=== PATIENT | female | born 1980 | race Caucasian/White ===

== ENCOUNTER → 2016-11-20 10:32 | Emergency (ER) | payer BC ==
[~2016-11-20 10:32] MED LIST: Iohexol 300* (CONTRAST) 10 ML SDV IV ONE; NS 0.9% 1000 ML* 2,000 ML IV ONE
[2016-11-20 12:39] LABS: Hematocrit 40 % (35-47); Hemoglobin 13.4 g/dl (12.0-16.0); Mean Corpuscular HGB Conc 33 g/dl (31-36); Mean Corpuscular Hemoglobin 28 pg (27-31); Mean Corpuscular Volume 83 fL (80-97); Mean Platelet Volume 8 um3 (7.4-10.4); Red Blood Count 4.86 10^6/ul (4.0-5.4); Red Cell Distribution Width 14 % (10.5-15); White Blood Count 7.7 10^3/ul (3.5-10.8)
[2016-11-20 13:00] LABS: ALT 56 U/L (7-52); AST 29 U/L (13-39); Albumin 4.3 g/dL (3.2-5.2); Alkaline Phosphatase 79 U/L (34-104); Amylase 28 U/L (29-103); Anion Gap 6 mmol/L (2-11); BUN/Creatinine Ratio 17.6 (8-20); Blood Urea Nitrogen 13 mg/dL (6-24); C Reactive Protein 6.61 mg/L (< 5.00); CO2 Carbon Dioxide 27 mmol/L (22-32); Calcium 9.6 mg/dL (8.6-10.3); Chloride 104 mmol/L (101-111); EGFR African American 115.5 (>60); EGFR Non-African American 89.8 (>60); Glucose 102 mg/dL (70-100); Lipase 39 U/L (11.0-82.0); Potassium 3.8 mmol/L (3.5-5.0); Sodium 137 mmol/L (133-145); Total Protein 7.3 g/dL (6.4-8.9)
--- NOTE | 2016-11-20 13:00 | RAD ---
HISTORY: Right ovarian pain, vaginal bleeding COMPARISONS: March 27, 2016 TECHNIQUE: Multiple transverse and longitudinal ultrasound images were obtained of the pelvis using grayscale, color Doppler, and spectral Doppler imaging using the endovaginal transducer. FINDINGS: UTERUS: The uterus measures 3.8 x 4.3 x 5.6 cm. The uterus is normal in shape, size, contour, and echotexture. ENDOMETRIUM: The endometrial stripe is smooth. The endometrium measures 0.3 cm in thickness. CUL-DE-SAC: There is a small amount of simple fluid within the cul-de-sac. This may be physiologic in a reproductive age female. RIGHT OVARY: The right ovary measures 2.9 x 1.5 x 2.5 cm. Normal arterial and venous waveforms are identifiable within the ovary on spectral Doppler imaging. Multiple follicles are noted. LEFT OVARY: The left ovary measures 2.9 x 1.9 x 2.1 cm. Normal arterial and venous waveforms are identifiable within the ovary on spectral Doppler imaging. Multiple follicles are noted, including a 1.9 cm follicular cyst. BLADDER: The bladder is not well visualized. IMPRESSION: 1. NO SONOGRAPHIC FEATURES OF TORSION. PLEASE NOTE THAT PARTIAL OR INTERMITTENT TORSION MAY BE SONOGRAPHICALLY NORMAL. 2. SMALL AMOUNT OF FLUID WITHIN THE CUL-DE-SAC. THIS MAY BE PHYSIOLOGIC WITHIN A REPRODUCTIVE AGE FEMALE.
[2016-11-20 13:43] LABS: Urine Bacteria Absent (Absent); Urine Bilirubin Negative (Negative); Urine Glucose Negative (Negative); Urine Nitrite Negative (Negative)
--- NOTE | 2016-11-20 14:24 | RAD ---
INDICATION: Right upper and left lower quadrant pain. COMPARISON: Comparison is made with a prior CT of the abdomen and pelvis from December 05, 2014. TECHNIQUE: A CT scan of the abdomen and pelvis was performed with intravenous and oral contrast following intravenous injection of 132 ml of Omnipaque 300 nonionic contrast. Contiguous axial sections were obtained from the lung bases through the symphysis pubis. Images were reconstructed in the coronal and sagittal planes. FINDINGS: The lung bases are clear. No pleural effusion is present. The liver is mildly enlarged and decreased in attenuation consistent with fatty infiltration. No significant focal abnormality is seen. No intra or extrahepatic ductal distention is present. The patient is status post cholecystectomy. The spleen and pancreas appear to be within normal limits. The kidneys and adrenal glands are normal in size. No hydronephrosis is seen. No significant focal renal abnormality is seen. The aorta is normal in caliber and demonstrates homogeneous contrast opacification. No significant enlarged retroperitoneal lymph nodes are seen. The stomach, small and large bowel appear nondistended. The appendix is within normal limits. There is no evidence for diverticulitis or colitis. There is a small periumbilical hernia containing fat. The uterus is anteverted and normal in size. There is a focal hypodense area in the posterior body of the uterus measuring 2.1 x 1.2 cm in size most consistent with a leiomyoma. No free intraperitoneal air or fluid is seen. No significant focal osseous abnormality is seen. IMPRESSION: 1. NO EVIDENCE FOR ACUTE FINDING OR CAUSE FOR THE PATIENT'S ABDOMINAL PAIN IS SEEN. 2. MILD HEPATOMEGALY AND HEPATIC STEATOSIS. 3. STATUS POST CHOLECYSTECTOMY.
[2016-11-20 15:35] VITALS: BP 132/68
--- NOTE | 2016-11-20 15:52 | ED ---
Felicitas Mccullough Auryana, scribed for Vaibhav Flores MD on 11/20/16 at 1358 . Abdominal Pain/Female - HPI Summary HPI Summary: 36 year old female presents with abdominal pain for the last year worse today. She states that the episodes are intermittent and that eating aggravates the pain. She reports that also has increased sweating, chills, pain under her right breast, and prolonged menstruation for the last year - reports about 4 pads a day, currently week 3 of menstrual period. She denies chest pain, vaginal discharge, trouble urinating, ear pain, and sore throat. She is unsure what her urine looks like. She is not on any blood thinners. PMHx is significant for cholestectomy - removal in 2015- chronic diarrhea (nml color, no blood, semi formed) since then with internal bleeding and excess scar tissue s/p surgery (also reports changes in eating habits - lost 5-6 pounds) and IBS. No PMHx of HTN, HLD, or DM. FHx is significant for IBS. She denies any excessive alcohol use. She is a former smoker and occasional alcohol use. PCP is Dr. Oviedo. - History of Current Complaint Chief Complaint: EDOrvillein Stated Complaint: ABD PAIN/BUMP UNDER RT BREAST Time Seen by Provider: 11/20/16 11:16 Hx Obtained From: Patient Hx Last Menstrual Period: current Onset/Duration: Lasting Weeks - for last year, Still Present, Worse Since Timing: Constant Severity Initially: Mild Severity Currently: Moderate Pain Intensity: 7 Pain Scale Used: 0-10 Numeric Location: Diffuse Aggravating Factor(s): Food - in general Associated Signs and Symptoms: Positive: Diaphoresis, Vaginal Bleeding - prolonged menstration, Other: - pain under the right breast, chills Simlar Episode/Dx as:: see HPI Allergies/Adverse Reactions: Allergies Allergy/AdvReac Type Severity Reaction Status Date / Time Penicillin V Allergy Unknown Verified 12/05/14 15:06 [From Penicillin VK Reaction Potassium] Details Morphine AdvReac Nausea And Verified 12/05/14 15:06 Vomiting APRICOTS Allergy Rash Uncoded 12/05/14 15:06 cillins, Allergy Rash Uncoded 12/05/14 15:06 PMH/Surg Hx/FS Hx/Imm Hx Endocrine/Hematology History: Denies: Hx Diabetes Cardiovascular History: Denies: Hx Congestive Heart Failure, Hx Hypertension, Hx Pacemaker/ICD GI History: Reports: Hx Gastroesophageal Reflux Disease - CONTROL WITH MEDS History: Denies: Hx Dialysis, Hx Renal Disease Sensory History: Reports: Hx Contacts or Glasses - CONTACTS INSTRUCTED TO WEAR GLASSES DAY OF SURGERY Denies: Hx Hearing Aid Opthamlomology History: Reports: Hx Contacts or Glasses - CONTACTS INSTRUCTED TO WEAR GLASSES DAY OF SURGERY Psychiatric History: Denies: Hx Panic Disorder - Surgical History Surgery Procedure, Year, and Place: 2002 RIGHT KNEE ARTHROSCOPIC ANTERIOR CRUCIATE LIGAMENT RECONSTRUCTION, [id number] RIGHT KNEE ARTHROSCOPIC SURGERY, [id number] LEFT KNEE ARTHROSCOPIC ANTERIOR CRUCIATE LIGAMENT RECONSTRUCTION ANDWISDOM TEETH EXTRACTION, OFFICE. November 27 gallbladder removed Hx Anesthesia Reactions: No Infectious Disease History: No Infectious Disease History: Denies: Traveled Outside the [place] in Last 30 Days - Family History Known Family History: Positive: Other - IBS - Social History Occupation: Employed Full-time - [employer] Lives: Alone Alcohol Use: Occasionally Substance Use Type: Reports: None, Prescribed Substance Use Comment - Amount & Last Used: oxycodone post op 11/27/14 Hx Tobacco Use: No Smoking Status (MU): Former Smoker Amount Used/How Often: 2-3 CIGARETTES PER DAY Have You Smoked in the Last Year: No Review of Systems Positive: Chills, Skin Diaphoresis - increased sweating . Negative: Fever Eyes: Negative Cardiovascular: Negative Respiratory: Negative Positive: Abdominal Pain Positive: other - vaginal bleeding - heavy - for 3 weeks now Positive: Other - pain under the right breast Skin: Negative Neurological: Negative Psychological: Normal All Other Systems Reviewed And Are Negative: Yes Physical Exam - Summary Physical Exam Summary: The patient is well-nourished in no acute distress and in no acute pain. The skin is warm and dry and skin color reflects adequate perfusion. HEENT: The head is normocephalic and atraumatic. The pupils are equal and reactive. The conjunctivae are clear and without drainage. Nares are patent and without drainage. Mouth reveals moist mucous membranes and the throat is without erythema and exudate. The external ears are intact. Neck is supple with full range of motion and non-tender. There are no carotid bruits. There is no neck vein distension. Respiratory: Chest is non-tender. Lungs are clear to auscultation and breath sounds are symmetrical and equal. Cardiovascular: Hear is regular rate and rhythm. There is no murmur or rub auscultated. There is no peripheral edema and pulses are symmetrical and equal. Abdomen: The abdomen is soft. Tenderness in the RUQ, left middle quadrant and over the R ovary. There are normal bowel sounds heard in all four quadrants and there is no organomegaly palpated. Musculoskeletal: There is no back pain noted. Extremities are non-tender with full range of motion. There is good capillary refill. There is no peripheral edema or calf tenderness elicited. Neurological: Patient is alert and oriented to person, place and time. The patient has symmetrical motor strength in all four extremities. Cranial nerves are grossly intact. Deep tendon reflexes are symmetrical and equal in all four extremities. Psychiatric: The patient has an appropriate affect and does not exhibit any anxiety or depression. Triage Information Reviewed: Yes Vital Signs On Initial Exam: Initial Vitals Temp Pulse Resp BP Pulse Ox 973.8 F 79 20 142/83 95 11/20/16 10:34 11/20/16 10:34 11/20/16 10:34 11/20/16 10:34 11/20/16 10:34 Vital Signs Reviewed: Yes - [place] Coma Scale Coma Scale Total: 15 Diagnostics - Vital Signs Vital Signs Temp Pulse Resp BP Pulse Ox 11/20/16 10:38 97.9 F 84 16 142/83 99 11/20/16 10:34 973.8 F 79 20 142/83 95 - Laboratory Lab Results: Lab Results 11/20/16 11/20/16 11/20/16 Range/Units 12:15 12:15 12:15 WBC 7.7 (3.5-10.8) 10^3/ul RBC 4.86 (4.0-5.4) 10^6/ul Hgb 13.4 (12.0-16.0) g/dl Hct 40 (35-47) % MCV 83 (80-97) fL MCH 28 (27-31) pg MCHC 33 (31-36) g/dl RDW 14 (10.5-15) % Plt Count 299 (150-450) 10^3/ul MPV 8 (7.4-10.4) um3 Neut % (Auto) 46.0 (38-83) % Lymph % (Auto) 45.5 (25-47) % [place] % (Auto) 7.0 (1-9) % Eos % (Auto) 1.0 (0-6) % Baso % (Auto) 0.5 (0-2) % Absolute Neuts (auto) 3.5 (1.5-7.7) 10^3/ul Absolute Lymphs (auto) 3.5 (1.0-4.8) 10^3/ul Absolute Monos (auto) 0.5 (0-0.8) 10^3/ul Absolute Eos (auto) 0.1 (0-0.6) 10^3/ul Absolute Basos (auto) 0 (0-0.2) 10^3/ul Absolute Nucleated RBC 0.02 10^3/ul Nucleated RBC % 0.2 Sodium 137 (133-145) mmol/L Potassium 3.8 (3.5-5.0) mmol/L Chloride 104 (101-111) mmol/L Carbon Dioxide 27 (22-32) mmol/L Anion Gap 6 (2-11) mmol/L BUN 13 (6-24) mg/dL Creatinine 0.74 (0.51-0.95) mg/dL Est GFR ( Amer) 115.5 (>60) Est GFR (Non-Af Amer) 89.8 (>60) BUN/Creatinine Ratio 17.6 (8-20) Glucose 102 H (70-100) mg/dL Lactic Acid 1.2 (0.5-2.0) mmol/L Calcium 9.6 (8.6-10.3) mg/dL Total Bilirubin 0.30 (0.2-1.0) mg/dL AST 29 (13-39) U/L ALT 56 H (7-52) U/L Alkaline Phosphatase 79 (34-104) U/L C-Reactive Protein 6.61 H (< 5.00) mg/L Total Protein 7.3 (6.4-8.9) g/dL Albumin 4.3 (3.2-5.2) g/dL Globulin 3.0 (2-4) g/dL Albumin/Globulin Ratio 1.4 (1-3) Amylase 28 L (29-103) U/L Lipase 39 (11.0-82.0) U/L Beta HCG, Quant < 0.60 mIU/mL Urine Color Urine Appearance Urine pH (5-9) Ur Specific [place] (1.010-1.030) Urine Protein (Negative) Urine Ketones (Negative) Urine Blood (Negative) Urine Nitrate (Negative) Urine Bilirubin (Negative) Urine Urobilinogen (Negative) Ur Leukocyte Esterase (Negative) Urine WBC (Auto) (Absent) Urine RBC (Auto) (Absent) Ur Squamous Epith Cells (Absent) Urine Bacteria (Absent) Urine Glucose (Negative) 11/20/16 Range/Units 13:00 WBC (3.5-10.8) 10^3/ul RBC (4.0-5.4) 10^6/ul Hgb (12.0-16.0) g/dl Hct (35-47) % MCV (80-97) fL MCH (27-31) pg MCHC (31-36) g/dl RDW (10.5-15) % Plt Count (150-450) 10^3/ul MPV (7.4-10.4) um3 Neut % (Auto) (38-83) % Lymph % (Auto) (25-47) % [place] % (Auto) (1-9) % Eos % (Auto) (0-6) % Baso % (Auto) (0-2) % Absolute Neuts (auto) (1.5-7.7) 10^3/ul Absolute Lymphs (auto) (1.0-4.8) 10^3/ul Absolute Monos (auto) (0-0.8) 10^3/ul Absolute Eos (auto) (0-0.6) 10^3/ul Absolute Basos (auto) (0-0.2) 10^3/ul Absolute Nucleated RBC 10^3/ul Nucleated RBC % Sodium (133-145) mmol/L Potassium (3.5-5.0) mmol/L Chloride (101-111) mmol/L Carbon Dioxide (22-32) mmol/L Anion Gap (2-11) mmol/L BUN (6-24) mg/dL Creatinine (0.51-0.95) mg/dL Est GFR ( Amer) (>60) Est GFR (Non-Af Amer) (>60) BUN/Creatinine Ratio (8-20) Glucose (70-100) mg/dL Lactic Acid (0.5-2.0) mmol/L Calcium (8.6-10.3) mg/dL Total Bilirubin (0.2-1.0) mg/dL AST (13-39) U/L ALT (7-52) U/L Alkaline Phosphatase (34-104) U/L C-Reactive Protein (< 5.00) mg/L Total Protein (6.4-8.9) g/dL Albumin (3.2-5.2) g/dL Globulin (2-4) g/dL Albumin/Globulin Ratio (1-3) Amylase (29-103) U/L Lipase (11.0-82.0) U/L Beta HCG, Quant mIU/mL Urine Color Yellow Urine Appearance Clear Urine pH 6.0 (5-9) Ur Specific [place] 1.024 (1.010-1.030) Urine Protein Negative (Negative) Urine Ketones Negative (Negative) Urine Blood 1+ H (Negative) Urine Nitrate Negative (Negative) Urine Bilirubin Negative (Negative) Urine Urobilinogen Negative (Negative) Ur Leukocyte Esterase Negative (Negative) Urine WBC (Auto) Absent (Absent) Urine RBC (Auto) 1+(3-5/hpf) H (Absent) Ur Squamous Epith Cells Present H (Absent) Urine Bacteria Absent (Absent) Urine Glucose Negative (Negative) Result Diagrams: 11/20/16 12:15 11/20/16 12:15 Lab Statement: Any lab studies that have been ordered have been reviewed, and results considered in the medical decision making process. - CT ABD/PEL CT Interpretation: Positive (See Comments) - IMPRESSION: 1. NO EVIDENCE FOR ACUTE FINDING OR CAUSE FOR THE PATIENT'S ABDOMINAL PAIN IS SEEN. 2. MILD HEPATOMEGALY AND HEPATIC STEATOSIS. 3. STATUS POST CHOLECYSTECTOMY. CT Interpretation Completed By: Radiologist - Additional Comments Diagnostic Additional Comments: Transvaginal US IMPRESSION: 1. NO SONOGRAPHIC FEATURES OF TORSION. PLEASE NOTE THAT PARTIAL OR INTERMITTENT TORSION MAY BE SONOGRAPHICALLY NORMAL. 2. SMALL AMOUNT OF FLUID WITHIN THE CUL-DE-SAC. THIS MAY BE PHYSIOLOGIC WITHIN A REPRODUCTIVE AGE FEMALE. Re-Evaluation - Re-Evaluation First Eval Re-Evaluation Time: 01:29 - discussed labs and imaging results- US Comment: PENDING ABD/PEL CT Second Eval Re-Evaluation Time: 15:01 - discuss ABD/PEL CT and plan of action Comment: gave up-to-date article on IBS - agrees with plan to discharge with follow up Abdominal Pain Fem Course/Dx - Course Course Of Treatment: 36 year old female presents with intermittent abdominal pain for the last year worse today. She also has increased sweating, chills, pain under the right breast, and prolonged menstration. PMHx is significant for cholestectomy (2014) with chronic diarrhea afterwards, and IBS. FHx is significant for IBS. Urine ordered - blood present. Labs drawn. Transvaginal US - 1. NO SONOGRAPHIC FEATURES OF TORSION. PLEASE NOTE THAT PARTIAL OR INTERMITTENT TORSION. MAY BE SONOGRAPHICALLY NORMAL. 2. SMALL AMOUNT OF FLUID WITHIN THE CUL-DE-SAC. THIS MAY BE PHYSIOLOGIC WITHIN A. REPRODUCTIVE AGE FEMALE. ABD/PEL CT - MILD HEPATOMEGALY AND HEPATIC STEATOSIS - otherwise NML. Patient kept up to date on progress throughout course. Does not wish to go home with any medication and agrees with discharge plan to follow up with Dr. Gomes (FOLDER INSPECTOR), Dr. Morales (GI) , and her PCP , Dr. Oviedo. Diagnosis: abdominal pain, vaginal bleeding and IBS - Diagnoses Differential Diagnosis: Positive: Diverticulitis, Ovarian Cyst, , Other - IBS, UC, Crohn's, DUB Provider Diagnoses: Vaginal bleeding, IBS (irritable bowel syndrome), Abdominal pain Discharge - Discharge Plan Condition: Stable Disposition: HOME Patient Education Materials: Abdominal Pain (ED), Dysfunctional Uterine Bleeding (ED), Irritable Bowel Syndrome (ED) Referrals: Mu Oviedo MD [Primary Care Provider] - 4 Days (On Wednesday) Nichole Gomes MD [Medical Doctor] - 4 Days Leonidas Morales MD [Medical Doctor] - 4 Days The documentation as recorded by the Felicitas lin Auryana accurately reflects the service I personally performed and the decisions made by , Vaibhav Flores MD.
== END | disposition home or self-care (01) ==
LOC: ED 10:32
DX: R10.9 Unspecified abdominal pain (principal); Z87.891 Personal history of nicotine dependence; K58.9 Irritable bowel syndrome, unspecified; N93.8 Other specified abnormal uterine and vaginal bleeding; Z32.02 Encounter for pregnancy test, result negative
CPT/HCPCS: 36415; 74177; 76830; 80053; 81003; 81015; 82150; 83605; 83690; 84702; 85025; 86140; 86803; 99282; Q9967

== ENCOUNTER 2018-01-18 10:16 | Emergency (ER) | payer BC ==
[2018-01-18] MEDS ORDERED: Aspirin 81 mg CHEW TAB* 81 MG TAB.CHEW PO ONE (10:59)
[2018-01-18] MEDS ORDERED: Famotidine TAB* 20 MG PO ONE (11:01)
[2018-01-18] MEDS ORDERED: Lidocaine 2% VISCOUS* 15 ML UDC PO ONE (11:01)
[2018-01-18] MEDS ORDERED: Al Hydrox/Mg Hydrox/Simet LIQ* 30 ML UDC PO ONE (11:01)
[2018-01-18 11:21] LABS: Hematocrit 38 % (35-47); Hemoglobin 12.7 g/dl (12.0-16.0); Mean Corpuscular HGB Conc 33 g/dl (31-36); Mean Corpuscular Hemoglobin 28 pg (27-31); Mean Corpuscular Volume 83 fL (80-97); Platelet Count 338 10^3/ul (150-450); Red Blood Count 4.57 10^6/ul (4.00-5.40); Red Cell Distribution Width 14 % (10.5-15)
--- NOTE | 2018-01-18 11:40 | RAD ---
INDICATION: Chest pain. COMPARISON: There are no prior studies available for comparison. TECHNIQUE: A portable view of the chest was obtained. FINDINGS: Cardiac and mediastinal contours appear to be within normal limits. The lungs are clear. No pleural effusion is seen. IMPRESSION: NO EVIDENCE FOR ACUTE DISEASE.
[2018-01-18 11:42] LABS: EGFR Non-African American 82.3 (>60)
[2018-01-18 12:00] LABS: ABS Basophils 0.1 10^3/ul (0-0.2); ABS Eosinophils 0.1 10^3/ul (0-0.6); ABS Lymphocytes 5.9 10^3/ul (1.0-4.8); ABS Monocytes 0.7 10^3/ul (0-0.8); ABS Neutrophils 8.1 10^3/ul (1.5-7.7); ABS Nucleated RBC 0 10^3/ul; Eosinophil % 0.9 % (0-6); Lymphocyte % 39.5 % (25-47); Nucleated Red Blood Cells % 0
[2018-01-18 12:53] VITALS: BP 133/78
--- NOTE | 2018-01-18 14:14 | ED ---
Caleb Mccullough Angela, scribed for Zach Story MD on 01/18/18 at 1043 . HPI Chest Pain - HPI Summary HPI Summary: This pt is a 38 y/o female presenting to [facility] c/o intermittent mid sternal chest pain since this morning. Pt reports her pain is intermittent and is described as sharp and spasm. She notes that when her pain comes it is sudden and makes her catch her breath but then resolves spontaneously. Pt states her mid sternal chest pain radiates to her right shoulder. These chest pain episodes last for about 2 minutes. Denies feeling heart burn, reflux, rapid heart rate, SOB. Her pain is not aggravated with ambulation or exertion. Denies recent long distance travel, pain or swelling in LE. Upon walking to the ED this morning she felt very exhausted. Pt drinks alcohol occasionally. She is a former smoker. Denies any drug use. FHx of brother with SVT. LMP: 2 weeks ago. - History of Current Complaint Chief Complaint: EDChestPainROMI Hx Obtained From: Patient Hx Last Menstrual Period: current Onset/Duration: Started Hours Ago, Still Present Timing: Intermittent, Lasting Hours Current Severity: Moderate Pain Intensity: 4 Pain Scale Used: 0-10 Numeric Chest Pain Location: Mid Sternal Chest Pain Radiates: Yes Chest Pain Radiates To:: Shoulder - right Character: Sharp/Stabbing - sharp Aggravating Factor(s): Nothing Alleviating Factor(s): Nothing Associated Signs and Symptoms: Positive: Chest Pain. Negative: Shortness of Breath, Swelling, Fever, Chills, Nausea, Calf Pain/Swelling, Vomiting, Edema - Allergy/Home Medications Allergies/Adverse Reactions: Allergies Allergy/AdvReac Type Severity Reaction Status Date / Time morphine Allergy Hives Verified 01/18/18 10:24 Penicillins Allergy Rash Verified 01/18/18 10:24 APRICOTS Allergy Rash Uncoded 01/18/18 10:24 Home Medications: Home Medications Ascorbic Acid TAB* [Vitamin C TAB*] 500 mg PO DAILY 01/18/18 [History Confirmed 01/18/18] Calcium Carbonate/Vitamin D3 [Calcium 500 + Vit D Caplet] 1 each PO DAILY [History Confirmed 01/18/18] Esomeprazole(NF) [NEXium(NF)] 20 mg PO DAILY 01/18/18 [History Confirmed ] Ethynodiol D-Ethinyl Estradiol [Zovia 135E 1-35 mg-Mcg] 1 tab PO DAILY [History Confirmed 01/18/18] Vitamin B Complex CAP* [B Complex CAP*] 1 cap PO DAILY 01/18/18 [History Confirmed 01/18/18] clonazePAM TAB(*) [KlonoPIN TAB(*)] 0.5 mg PO TID PRN 01/18/18 [History Confirmed 01/18/18] predniSONE TAB* [Deltasone TAB*] 25 mg PO DAILY 01/18/18 [History Confirmed 10/03] PMH/Surg Hx/FS Hx/Imm Hx Endocrine/Hematology History: Denies: Hx Diabetes Cardiovascular History: Denies: Hx Congestive Heart Failure, Hx Hypertension, Hx Pacemaker/ICD GI History: Reports: Hx Gastroesophageal Reflux Disease - CONTROL WITH MEDS History: Denies: Hx Dialysis, Hx Renal Disease Sensory History: Reports: Hx Contacts or Glasses - CONTACTS INSTRUCTED TO WEAR GLASSES DAY OF SURGERY Denies: Hx Hearing Aid Opthamlomology History: Reports: Hx Contacts or Glasses - CONTACTS INSTRUCTED TO WEAR GLASSES DAY OF SURGERY Psychiatric History: Denies: Hx Panic Disorder - Surgical History Surgery Procedure, Year, and Place: 2002 RIGHT KNEE ARTHROSCOPIC ANTERIOR CRUCIATE LIGAMENT RECONSTRUCTION, [id number] RIGHT KNEE ARTHROSCOPIC SURGERY, [id number] LEFT KNEE ARTHROSCOPIC ANTERIOR CRUCIATE LIGAMENT RECONSTRUCTION ANDWISDOM TEETH EXTRACTION, OFFICE. November 27 gallbladder removed Hx Anesthesia Reactions: No Infectious Disease History: No Infectious Disease History: Denies: Traveled Outside the [place] in Last 30 Days - Family History Known Family History: Positive: Other - IBS Family History: Brother: SVT - Social History Alcohol Use: Occasionally Substance Use Type: Reports: None Substance Use Comment - Amount & Last Used: oxycodone post op 11/27/14 Hx Tobacco Use: No Smoking Status (MU): Former Smoker Amount Used/How Often: 2-3 CIGARETTES PER DAY Have You Smoked in the Last Year: No Review of Systems Positive: Fatigue. Negative: Fever Eyes: Negative Positive: Chest Pain Negative: Shortness Of Breath Negative: Vomiting, Nausea Negative: Edema - in LE All Other Systems Reviewed And Are Negative: Yes Physical Exam - Summary Physical Exam Summary: Appearance: Well appearing, no pain distress Skin: warm, dry, reflects adequate perfusion Head/face: normal Eyes: EOMI, LEIGH ENT: normal Neck: supple, non-tender Respiratory: CTA, breath sounds present Cardiovascular: RRR, pulses symmetrical Abdomen: non-tender, soft Bowel: present Musculoskeletal: normal, strength/ROM intact Neuro: normal, sensory motor intact, A&Ox3 Triage Information Reviewed: Yes Vital Signs On Initial Exam: Initial Vitals Temp Pulse Resp BP Pulse Ox 98.8 F 86 19 125/89 97 01/18/18 10:20 01/18/18 10:20 01/18/18 10:20 01/18/18 10:20 01/18/18 10:20 Vital Signs Reviewed: Yes Diagnostics - Vital Signs Vital Signs Temp Pulse Resp BP Pulse Ox 01/18/18 10:20 98.8 F 86 19 125/89 97 - Laboratory Lab Results: Lab Results 01/18/18 01/18/18 01/18/18 Range/Units 11:14 11:14 11:14 WBC 15.0 H (3.5-10.8) 10^3/ul RBC 4.57 (4.00-5.40) 10^6/ul Hgb 12.7 (12.0-16.0) g/dl Hct 38 (35-47) % MCV 83 (80-97) fL MCH 28 (27-31) pg MCHC 33 (31-36) g/dl RDW 14 (10.5-15) % Plt Count 338 (150-450) 10^3/ul MPV 8.0 (7.4-10.4) um3 Neut % (Auto) 54.0 (38-83) % Lymph % (Auto) 39.5 (25-47) % Craven % (Auto) 5.0 (0-7) % Eos % (Auto) 0.9 (0-6) % Baso % (Auto) 0.6 (0-2) % Absolute Neuts (auto) 8.1 H (1.5-7.7) 10^3/ul Absolute Lymphs (auto) 5.9 H (1.0-4.8) 10^3/ul Absolute Monos (auto) 0.7 (0-0.8) 10^3/ul Absolute Eos (auto) 0.1 (0-0.6) 10^3/ul Absolute Basos (auto) 0.1 (0-0.2) 10^3/ul Absolute Nucleated RBC 0 10^3/ul Nucleated RBC % 0 Hem Pathologist Commnt Pending D-Dimer, Quantitative (Less Than 230) ng/mL Sodium 138 (135-145) mmol/L Potassium 3.9 (3.5-5.0) mmol/L Chloride 105 (101-111) mmol/L Carbon Dioxide 25 (22-32) mmol/L Anion Gap 8 (2-11) mmol/L BUN 15 (6-24) mg/dL Creatinine 0.79 (0.51-0.95) mg/dL Est GFR ( Amer) 99.6 (>60) Est GFR (Non-Af Amer) 82.3 (>60) BUN/Creatinine Ratio 19.0 (8-20) Glucose 98 (70-100) mg/dL Lactic Acid 1.3 (0.5-2.0) mmol/L Calcium 8.7 (8.6-10.3) mg/dL Total Bilirubin 0.30 (0.2-1.0) mg/dL AST 11 L (13-39) U/L ALT 13 (7-52) U/L Alkaline Phosphatase 53 (34-104) U/L Troponin I 0.00 (<0.04) ng/mL Total Protein 6.8 (6.4-8.9) g/dL Albumin 3.9 (3.2-5.2) g/dL Globulin 2.9 (2-4) g/dL Albumin/Globulin Ratio 1.3 (1-3) TSH 1.50 (0.34-5.60) mcIU/mL Beta HCG, Quant < 0.60 mIU/mL 01/18/18 Range/Units 11:52 WBC (3.5-10.8) 10^3/ul RBC (4.00-5.40) 10^6/ul Hgb (12.0-16.0) g/dl Hct (35-47) % MCV (80-97) fL MCH (27-31) pg MCHC (31-36) g/dl RDW (10.5-15) % Plt Count (150-450) 10^3/ul MPV (7.4-10.4) um3 Neut % (Auto) (38-83) % Lymph % (Auto) (25-47) % Craven % (Auto) (0-7) % Eos % (Auto) (0-6) % Baso % (Auto) (0-2) % Absolute Neuts (auto) (1.5-7.7) 10^3/ul Absolute Lymphs (auto) (1.0-4.8) 10^3/ul Absolute Monos (auto) (0-0.8) 10^3/ul Absolute Eos (auto) (0-0.6) 10^3/ul Absolute Basos (auto) (0-0.2) 10^3/ul Absolute Nucleated RBC 10^3/ul Nucleated RBC % Hem Pathologist Commnt D-Dimer, Quantitative < 200 (Less Than 230) ng/mL Sodium (135-145) mmol/L Potassium (3.5-5.0) mmol/L Chloride (101-111) mmol/L Carbon Dioxide (22-32) mmol/L Anion Gap (2-11) mmol/L BUN (6-24) mg/dL Creatinine (0.51-0.95) mg/dL Est GFR ( Amer) (>60) Est GFR (Non-Af Amer) (>60) BUN/Creatinine Ratio (8-20) Glucose (70-100) mg/dL Lactic Acid (0.5-2.0) mmol/L Calcium (8.6-10.3) mg/dL Total Bilirubin (0.2-1.0) mg/dL AST (13-39) U/L ALT (7-52) U/L Alkaline Phosphatase (34-104) U/L Troponin I (<0.04) ng/mL Total Protein (6.4-8.9) g/dL Albumin (3.2-5.2) g/dL Globulin (2-4) g/dL Albumin/Globulin Ratio (1-3) TSH (0.34-5.60) mcIU/mL Beta HCG, Quant mIU/mL Result Diagrams: 01/18/18 11:14 01/18/18 11:14 Lab Statement: Any lab studies that have been ordered have been reviewed, and results considered in the medical decision making process. - Radiology Chest XR Xray Interpretation: No Acute Changes - IMPRESSION: No evidence for acute disease. Dr. Story has reviewed this radiology report. Radiology Interpretation Completed By: Radiologist - EKG 10:49 Cardiac Rate: NL - at 74 bpm EKG Rhythm: Sinus Rhythm ST Segment: Normal EKG Interpretation: Normal axis and intervals. Re-Evaluation - Re-Evaluation First Eval Re-Evaluation Time: 12:28 Comment: I reviewed lab results with the pt. She has mild continuous chest discomfort. Pt states she has been under a lot of stress, her was just recently discharged from the hospital and has a family member with colon CA. Chest Pain Course/Dx - Course Course Of Treatment: Patient experiencing a great deal of stress lately with a family member with colon cancer and her hospitalized. She had some abrupt onset of symptoms with a normal EKG and troponin of 0. Her d-dimer is also negative. Possibilities anxiety related, GI related such as esophageal spasm. GI medications did not help. Minimal symptoms at present. Discharged in good condition to follow up closely with her primary care physician. HEART score 0. - Chest Pain Differential Diagnosis/HQI/PQRI: Acute SC, ACS, Chest Wall, GI Disease, Lower Respiratory Infection, Pulmonary Edema, Pulmonary Embolism, Other: - Anxiety - Diagnoses Provider Diagnoses: Atypical chest pain, Stress reaction Discharge - Sign-Out/Discharge Documenting (check all that apply): Discharge/Admit/Transfer - Discharge - Discharge Plan Condition: Good Disposition: HOME Patient Education Materials: Chest Pain (ED) Forms: *Work Release Referrals: Mu Oviedo MD [Primary Care Provider] - Additional Instructions: Call today to follow up with your doctor. Return with worsening symptoms, fever , difficulty breathing, new symptoms or other concerns as discussed. To minimize or stress. - Billing Disposition and Condition Condition: GOOD Disposition: Home The documentation as recorded by the Caleb lin Angela accurately reflects the service I personally performed and the decisions made by me, Zach Story MD.
== END 2018-01-18 12:54 | disposition home or self-care (01) ==
LOC: ED 10:16
DX: R07.89 Other chest pain (principal); F43.9 Reaction to severe stress, unspecified; K21.9 Gastro-esophageal reflux disease without esophagitis; Z79.899 Other long term (current) drug therapy; Z87.891 Personal history of nicotine dependence; Z82.49 Family history of ischemic heart disease and other diseases of the circulatory system; Z88.5 Allergy status to narcotic agent; Z88.0 Allergy status to penicillin
CPT/HCPCS: 36415; 71045; 80053; 83605; 84443; 84484; 84702; 85025; 85060; 85379; 93005; 99283; A9270-GY

== ENCOUNTER 2019-01-23 09:40 | Emergency (ER) | payer BC ==
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
[2019-01-23] MEDS ORDERED: Ondansetron INJ* 2 MG/ML VIAL IV ONE (10:37)
[2019-01-23] MEDS ORDERED: Ketorolac INJ* 30 MG/ML 1 ML VIAL IV PUSH ONE (10:37)
[2019-01-23] MEDS ORDERED: NS 0.9% 1000 ML** 1,000 ML IV ONE (10:37)
[2019-01-23] MEDS ORDERED: Metoclopramide IV* 5 MG/ML 2 ML VIAL IV SLOW PU ONE (12:19)
[2019-01-23] MEDS ORDERED: Diazepam TAB(*) 5 MG PO ONE (12:19)
[2019-01-23 14:42] VITALS: BP 135/91
== END 2019-01-23 14:56 | disposition home or self-care (01) ==
LOC: ED 09:40
DX: S06.0X1A Concussion with loss of consciousness of 30 minutes or less, initial encounter (principal); S16.1XXA Strain of muscle, fascia and tendon at neck level, initial encounter; S06.9X9A Unspecified intracranial injury with loss of consciousness of unspecified duration, initial encounter; W22.09XA Striking against other stationary object, initial encounter; Y92.9 Unspecified place or not applicable; Z88.0 Allergy status to penicillin; K21.9 Gastro-esophageal reflux disease without esophagitis; Z87.891 Personal history of nicotine dependence; M50.321 Other cervical disc degeneration at C4-C5 level; M50.322 Other cervical disc degeneration at C5-C6 level; M50.323 Other cervical disc degeneration at C6-C7 level
CPT/HCPCS: 70450; 72125; 96361; 96374; 96375; 99283; A9270-GY; J1885; J2405; J2765

== ENCOUNTER 2019-08-09 12:30 | Emergency (ER) | payer BC ==
--- NOTE | 2019-08-09 13:09 | ED ---
Upper Extremity Pain - HPI Summary HPI Summary: The patient is a 39 y/o female presenting to [facility] with a chief complaint of traumatic fall this morning. She reports that she had been going down the stairs at home and slid, causing her to land on her back. She is now suffering from pain in the right shoulder with decreased ROM with abduction, as well as lower thoracic and lumbar spinal pain. She endorses paresthesias in the fingers of the right hand. Pain is rated 8/10 in severity. She has used Tylenol RELIEF DRILLER to little relief. Sitting aggravates the pain, and standing somewhat alleviates it. Not currently on blood thinners. PMHx: multiple ligament reconstructions in the lower extremities. Former smoker, occasional EtOH, no substance use. Medications reviewed. Allergies noted. - History of Current Complaint Chief Complaint: EDBackInjuryPain Stated Complaint: FALL BACK PAIN RIGHT SHOULDER PAIN Time Seen by Provider: 08/09/19 12:48 Hx Obtained From: Patient Hx Last Menstrual Period: current Mechanism Of Injury: Fall From A Standing Position - down 6 stairs Onset/Duration: Traumatic, Still Present Timing: Constant Severity Initially: Moderate Severity Currently: Moderate Pain Location: Shoulder - right, Other: - lower back Character: Aching Aggravating Factor(s): Abduction, Other - sitting aggravates back pain Alleviating Factor(s): Rest, Other - standing Associated Signs & Symptoms: Positive: Numbness/Tingling - fingers of right hand , Back Pain - Allergies/Home Medications Allergies/Adverse Reactions: Allergies Allergy/AdvReac Type Severity Reaction Status Date / Time doxycycline Allergy Unknown Verified 08/09/19 12:56 Reaction Details morphine Allergy Hives Verified 08/09/19 12:56 Penicillins Allergy Rash Verified 08/09/19 12:56 APRICOTS Allergy Rash Uncoded 08/09/19 12:56 Home Medications: Home Medications Hydroxychloroquine TAB* [Plaquenil TAB*] 200 mg PO DAILY 08/09/19 [History Confirmed 08/09/19] PMH/Surg Hx/FS Hx/Imm Hx Endocrine/Hematology History: Denies: Hx Diabetes Cardiovascular History: Denies: Hx Angina, Hx Congestive Heart Failure, Hx Coronary Artery Disease, Hx Hypercholesterolemia, Hx Hypertension, Hx Myocardial Infarction, Hx Pacemaker /ICD, Hx Valvular Heart Disease Respiratory History: Denies: Hx Asthma, Hx Chronic Obstructive Pulmonary Disease (COPD) GI History: Reports: Hx Gastroesophageal Reflux Disease - CONTROL WITH MEDS History: Denies: Hx Dialysis, Hx Renal Disease Sensory History: Reports: Hx Contacts or Glasses - CONTACTS INSTRUCTED TO WEAR GLASSES DAY OF SURGERY Denies: Hx Hearing Aid Opthamlomology History: Reports: Hx Contacts or Glasses - CONTACTS INSTRUCTED TO WEAR GLASSES DAY OF SURGERY Psychiatric History: Denies: Hx Panic Disorder - Surgical History Surgical History: Yes Surgery Procedure, Year, and Place: 2002 RIGHT KNEE ARTHROSCOPIC ANTERIOR CRUCIATE LIGAMENT RECONSTRUCTION, [id number] RIGHT KNEE ARTHROSCOPIC SURGERY, [id number] LEFT KNEE ARTHROSCOPIC ANTERIOR CRUCIATE LIGAMENT RECONSTRUCTION ANDWISDOM TEETH EXTRACTION, OFFICE. November 27 gallbladder removed Hx Anesthesia Reactions: No Infectious Disease History: No Infectious Disease History: Denies: Traveled Outside the [place] in Last 30 Days - Family History Known Family History: Positive: Other - IBS Family History: Brother: SVT - Social History Alcohol Use: Occasionally Substance Use Type: Reports: None Substance Use Comment - Amount & Last Used: oxycodone post op 11/27/14 Hx Tobacco Use: No Smoking Status (MU): Former Smoker Amount Used/How Often: 2-3 CIGARETTES PER DAY Have You Smoked in the Last Year: No Review of Systems Positive: Arthralgia - right shoulder, low back Positive: Paresthesia - fingers of right hand All Other Systems Reviewed And Are Negative: Yes Physical Exam - Summary Physical Exam Summary: Constitutional: Well-developed, Well-nourished, Alert. (-) Distressed Skin: Warm, Dry HENT: Normocephalic; Atraumatic Eyes: Conjunctiva normal Neck: Musculoskeletal ROM normal neck. (-) JVD, (-) Stridor, (-) Nuchal rigidity , (-) Cervical spine tenderness Cardio: Rhythm regular, rate normal, Heart sounds normal; Intact distal pulses; Radial pulses are 2+ and symmetric. (-) Murmur Pulmonary/Chest wall: Effort normal. (-) Respiratory distress, (-) Wheezes, (-) Rales Abd: Soft, (-) tenderness, (-) Distension, (-) Guarding, (-) Rebound Musculoskeletal: Tenderness of the lateral right shoulder, Pain with shoulder abduction, No tenderness of the distal humerus or elbow, Midline thoracic and lumbar spine tenderness, (-) Edema Lymph: (-) Cervical adenopathy Neuro: Alert, Oriented x3 Psych: Mood and affect Normal Triage Information Reviewed: Yes Vital Signs On Initial Exam: Initial Vitals Temp Pulse Resp BP Pulse Ox 98.1 F 110 18 149/103 98 08/09/19 12:31 08/09/19 12:31 08/09/19 12:31 08/09/19 12:31 08/09/19 12:31 Vital Signs Reviewed: Yes Procedures - Sedation Patient Received Moderate/Deep Sedation with Procedure: No Diagnostics - Vital Signs Vital Signs Temp Pulse Resp BP Pulse Ox 08/09/19 12:31 98.1 F 110 18 149/103 98 - Laboratory Lab Statement: Any lab studies that have been ordered have been reviewed, and results considered in the medical decision making process. - Radiology R Shoulder XR Radiology Interpretation Completed By: Radiologist Summary of Radiographic Findings: Impression: 1. Negative for fracture. 2. Normal acromioclavicular and glenohumeral joint alignment. 3. No significant arthropathic change evident. 4. Unremarkable soft tissue contours. ED physician has reviewed this report. Thoracolumbar XR Radiology Interpretation Completed By: Radiologist Summary of Radiographic Findings: Impression: No radiographic evidence for thoracic or lumbar sacral spine traumatic injury. ED physician has reviewed this report. Re-Evaluation - Re-Evaluation First Eval Re-Evaluation Time: 14:15 Comment: Discussed results and plan for discharge, will give motrin and flexeril. Course/Dx - Course Course Of Treatment: 39 y/o F p/w lower back pain and shoulder pain after fall. - tenderness TL spine, R shoulder, check plain films. Reporting paresthesias of the fingertips, no dermatomal distribution. Good cap refill, 2+ pulse R radial. Full ROM fingers. Could have stunned a nerve, no e/o fracture to cause impingement. - Diagnoses Provider Diagnoses: Shoulder pain, right, Back pain, Fall Discharge ED - Sign-Out/Discharge Documenting (check all that apply): Patient Departure - Patient will be discharged home. - Discharge Plan Condition: Stable Disposition: HOME Prescriptions: Cyclobenzaprine TAB* [Flexeril 10 MG TAB*] 10 mg PO TID PRN 4 Days #12 tab PRN Reason: Pain - Moderate Ibuprofen TAB* [Motrin TAB* 800 MG] 800 mg PO TID PRN 10 Days #30 tab PRN Reason: Pain - Moderate Patient Education Materials: Acute Low Back Pain (ED), Shoulder Sprain (ED) Forms: *Work Release Referrals: Mu Oviedo MD [Primary Care Provider] - 3 Days Additional Instructions: You were seen in the emergency department for back and shoulder pain. Your xrays did not show any fractures. If any studies were not completed at the time of discharge you will be called with the relevant results. Please follow up with your primary care doctor in the next 2-3 days and return to the emergency department for numbness/tingling, weakness, worsening or concerning symptoms. It was a pleasure taking care of you today. - Billing Disposition and Condition Condition: STABLE Disposition: Home - Attestation Statements Document Initiated by Vipul: Yes Documenting Scribe: Ashley Rose Provider For Whom Vipul is Documenting (Include Credential): Dr. Davidson Mari MD Scribe Attestation: Ashley Mccullough scribed for Dr. Davidson Mari MD on 08/09/19 at 1437. Scribe Documentation Reviewed: Yes Provider Attestation: The documentation as recorded by the Ashley lin accurately reflects the service I personally performed and the decisions made by me, Dr. Davidson Mari MD Status of Scribe Document: Viewed
[2019-08-09 14:54] VITALS: BP 165/94
== END 2019-08-09 14:31 | disposition home or self-care (01) ==
LOC: ED 12:30
DX: M25.511 Pain in right shoulder (principal); M54.5 Low back pain; R20.0 Anesthesia of skin; R20.2 Paresthesia of skin; W00.1XXA Fall from stairs and steps due to ice and snow, initial encounter; Y93.89 Activity, other specified; Y92.009 Unspecified place in unspecified non-institutional (private) residence as the place of occurrence of the external cause; K21.9 Gastro-esophageal reflux disease without esophagitis; Z88.1 Allergy status to other antibiotic agents; Z88.5 Allergy status to narcotic agent; Z88.0 Allergy status to penicillin; Z91.018 Allergy to other foods; Z87.891 Personal history of nicotine dependence
CPT/HCPCS: 72080; 99282